=== PATIENT | female | born 1945 | race Caucasian/White ===

== ENCOUNTER 2018-02-20 17:19 | Inpatient (IN) | payer MEDICARE, OTHER ==
[~2018-02-20] VITALS: Ht 160 cm; Wt 102.3 kg
[~2018-02-20 17:19] MED LIST: ALBU8.5H8 INH; HYDR-4353 PO; LEVO137T24 PO
[2018-02-20] MEDS ORDERED: meclizine 12.5mg tablet PO ONE (18:00)
[2018-02-20 18:19] LABS: BASOPHILS % (AUTO) 0.4 % (0-1); EOSINOPHILS % (AUTO) 0.3 % (0-6); HEMATOCRIT 37.9 % (35.0-45.0); HEMOGLOBIN 12.7 g/dl (12.0-16.0); LYMPHOCYTES # (AUTO) 2.1 X10'3 (1.1-4.8); MEAN CORPUSCULAR HGB CONC 33.6 % (33.0-36.5); MEAN CORPUSCULAR VOLUME 92.4 FL (78-98); MONOCYTES # (AUTO) 0.6 X10'3 (0-0.9); MONOCYTES % (AUTO) 5.8 % (2-12); NEUTROPHILS # (AUTO) 8.1 X10'3 (1.8-7.7); NEUTROPHILS % (AUTO) 74.5 % (42-75); PLATELET COUNT 364 X10'3 (140-440); RED CELL DISTRIBUTION WIDTH 14.1 % (11.5-14.5); WHITE BLOOD COUNT 10.9 X10'3 (4.5-11.0)
[2018-02-20 18:33] LABS: PARTIAL THROMBOPLASTIN TIME 25 SECONDS (22-32); PROTHROMBIN TIME 10.4 SECONDS (9.0-12.0)
[2018-02-20 18:35] LABS: ALANINE AMINOTRANSFERASE 35 U/L (12-78); ALKALINE PHOSPHATASE 90 IU/L (46-116); ANION GAP 11 (8-16); ASPARTATE AMINO TRANSFERASE 20 U/L (10-37); BILIRUBIN,TOTAL 0.3 MG/DL (0.1-1.0); BLOOD UREA NITROGEN 19 MG/DL (7-18); BUN/CREATININE RATIO 21.3 (6.6-38.0); CHLORIDE 101 MMOL/L (99-107); CREATININE 0.89 MG/DL (0.40-0.90); GLUCOSE 120 MG/DL (70-104); MAGNESIUM 1.7 MG/DL (1.5-2.4); POTASSIUM 3.5 MMOL/L (3.5-5.1); SODIUM 138 MMOL/L (135-145); TOTAL CARBON DIOXIDE 26.1 MMOL/L (24-32); eGFR 63 ML/MIN
[2018-02-20] MEDS ORDERED: TURM538C (19:31)
[2018-02-20] MEDS ORDERED: CYAN-19 PO (19:31)
[2018-02-20] MEDS ORDERED: metoclopramide 5 mg/ml inj IV PRN (19:35)
[2018-02-20] MEDS ORDERED: bisacodyl 10mg suppository rectal RC PRN (19:35)
[2018-02-20] MEDS ORDERED: diphenhydrAMINE 25mg capsule PO PRN (19:35)
[2018-02-20] MEDS ORDERED: magnesium hydroxide 30ml (MOM) UD suspension PO PRN (19:35)
[2018-02-20] MEDS ORDERED: diphenhydrAMINE 50 mg/ml inj IV PRN (19:35)
[2018-02-20] MEDS ORDERED: mag hydrox/Alum hydrox/simeth 30ml oral suspension PO PRN (19:35)
[2018-02-20] MEDS ORDERED: HYDROmorphone 1 mg/ml syringe IV PRN (19:35)
[2018-02-20] MEDS ORDERED: acetaminophen 325mg tablet PO PRN (19:35)
[2018-02-20] MEDS ORDERED: HYDROcodone/acetaminophen 5mg/325mg tablet PO PRN (19:35)
[2018-02-20] MEDS ORDERED: acetaminophen 650mg rectal suppository RC PRN (19:35)
[2018-02-20] MEDS: normal saline 1000ml 1,000 ML IV SCH (19:35)
[2018-02-20] MEDS ORDERED: ondansetron/PF 4mg/2ml inj IV PRN (19:35)
[2018-02-20] MEDS ORDERED: morphine 2 MG/ML inj. syringe IV PRN (19:35)
[2018-02-20] MEDS ORDERED: normal saline 1000ml 1,000 ML IVB ONE (19:41)
[2018-02-20] MEDS ORDERED: meclizine 12.5mg tablet PO SCH (20:00)
[2018-02-20] MEDS ORDERED: albuterol 2.5 MG/3 ML nebule NEB PRN (20:10)
[2018-02-20 20:14] LABS: D-DIMER 0.83 MG/L FEU (0-0.50)
[2018-02-20 20:21] LABS: CREATINE KINASE 292 U/L (26-192); LIPASE 105 U/L (73-393)
[2018-02-20] MEDS: docusate sod 100mg capsule PO SCH (20:26)
[2018-02-20 20:54] LABS: CLARITY,URINE CLEAR (Clear); COLOR,URINE YELLOW (Yellow); GLUCOSE, URINE NEGATIVE (Neg); KETONES,URINE NEGATIVE (Neg); LEUKOCYTE ESTERASE ,URINE NEGATIVE (Neg); NITRITES, URINE NEGATIVE (Neg); OCCULT BLOOD,URINE TRACE-LYSED (Neg); PH,URINE 6.5 (4.8-8.0); PROTEIN,URINE NEGATIVE (Neg); UROBILINOGEN,URINE 0.2 E.U/dL (0.2-1.0)
[2018-02-20 21:00] LABS: UA COLLECTION TYPE CLN CATCH MIDSTREAM
[2018-02-20] MEDS ORDERED: temazepam 15mg capsule PO PRN (21:00)
[2018-02-20 21:01] LABS: BACTERIA,URINE FEW /HPF (Neg); RBC,URINE 0-2 /HPF (0-2); SQUAMOUS EPITHELIAL CELL,UR FEW /LPF (FEW); WBC,URINE NONE SEEN /HPF (0-4)
[2018-02-20 21:34] LABS: HEMOGLOBIN A1C 6.4 % (4.5-6.2)
[2018-02-20 21:40] LABS: PHOSPHORUS 3.2 MG/DL (2.3-4.5)
[2018-02-20 22:00] VITALS: BP 142/69
[2018-02-20] MEDS ORDERED: pneumococcal 23-VAL P-sac vacc 25 mcg/0.5ml vial IMVAC ONE (23:15)
[2018-02-21] MEDS: meclizine 12.5mg tablet PO SCH ×3 (00:05→15:38)
[2018-02-21] MEDS: heparin, porcine 5000 units/ml vial SQ SCH ×2 (00:07→09:48)
[2018-02-21 05:00] VITALS: BP 145/65
[2018-02-21 06:47] LABS: BASOPHILS % (AUTO) 0.6 % (0-1); EOSINOPHILS # (AUTO) 0.1 X10'3 (0-0.9); EOSINOPHILS % (AUTO) 2.2 % (0-6); HEMOGLOBIN 10.9 g/dl (12.0-16.0); LYMPHOCYTES # (AUTO) 1.9 X10'3 (1.1-4.8); LYMPHOCYTES % (AUTO) 28.4 % (21-51); MEAN CORPUSCULAR HEMOGLOBIN 31.4 PG (27.0-31.0); MEAN CORPUSCULAR VOLUME 92.5 FL (78-98); MEAN PLATELET VOLUME 8.4 FL (7.4-10.4); MONOCYTES # (AUTO) 0.6 X10'3 (0-0.9); MONOCYTES % (AUTO) 8.9 % (2-12); NEUTROPHILS # (AUTO) 4.1 X10'3 (1.8-7.7); NEUTROPHILS % (AUTO) 59.9 % (42-75); PLATELET COUNT 289 X10'3 (140-440); RED BLOOD COUNT 3.45 X10'6 (4.20-5.60); RED CELL DISTRIBUTION WIDTH 14.4 % (11.5-14.5); WHITE BLOOD COUNT 6.8 X10'3 (4.5-11.0)
[2018-02-21] MEDS ORDERED: levoTHYROXINE 112mcg tablet PO SCH (07:00)
[2018-02-21] MEDS ORDERED: levoTHYROXINE 25mcg tablet PO SCH (07:00)
[2018-02-21] MEDS ORDERED: pantoprazole 40mg Tablet.DR PO SCH (07:30)
[2018-02-21] MEDS: normal saline 1000ml 1,000 ML IV SCH (09:47)
[2018-02-21] MEDS: docusate sod 100mg capsule PO SCH (09:49)
[2018-02-21 10:00] VITALS: BP 119/60
[2018-02-21] MEDS ORDERED: gadopentetate dimeglumine 7.5 MMOL/15 ML syringe ONE (12:11)
[2018-02-21] MEDS ORDERED: MECL12.584 PO (14:58)
== END 2018-02-21 16:20 | disposition home or self-care (01) | DRG 149 ==
LOC: ER 17:20 → ED HOLD 19:35 → ORTHO 4S 21:50
PROVIDERS: ADMIT Family Medicine; ATTEND Family Medicine
PROC: BW38YZZ Magnetic Resonance Imaging (MRI) of Head using Other Contrast (ICD-10-PCS; principal; 2018-02-21)
DX: H81.8X9 Other disorders of vestibular function, unspecified ear (principal); J45.909 Unspecified asthma, uncomplicated; R27.0 Ataxia, unspecified; E03.9 Hypothyroidism, unspecified; I10 Essential (primary) hypertension; W18.39XA Other fall on same level, initial encounter; G43.909 Migraine, unspecified, not intractable, without status migrainosus; E86.0 Dehydration; Z28.21 Immunization not carried out because of patient refusal; Z88.6 Allergy status to analgesic agent; Z88.5 Allergy status to narcotic agent; Z91.013 Allergy to seafood; Z79.899 Other long term (current) drug therapy; Z87.891 Personal history of nicotine dependence; Z85.43 Personal history of malignant neoplasm of ovary; Z86.718 Personal history of other venous thrombosis and embolism; Y93.89 Activity, other specified; Y92.89 Other specified places as the place of occurrence of the external cause; Y99.8 Other external cause status
CPT/HCPCS: 36415; 70450; 70544; 70553; 71045; 71250; 74176; 80053; 80061; 81001; 82550; 83036; 83690; 83735; 83880; 84100; 84443; 84484; 85025; 85379; 85610; 85730; 87070; 93306; 93880; 94760; 96360; 97124; 97161; 97530; 99285; A9579; G0378; J1644; J7030; J8597

== ENCOUNTER 2018-06-23 06:28 | Day surgery (SDC) | payer MEDICARE, OTHER ==
[~2018-06-23] VITALS: Ht 160 cm; Wt 88.9 kg
[~2018-06-23 06:28] MED LIST changes: +CYAN-19 PO; -HYDR-4353 PO; +LIDOcaine 1% 30ml preserv. free vial IJ STA; +MECL12.584 PO; +TURM538C
[2018-06-23] MEDS ORDERED: normal saline 1000ml 1,000 ML IV SCH ×2 (06:55→08:58)
[2018-06-23 07:30] VITALS: BP 121/71
[2018-06-23 07:35] LABS: BASOPHILS % (AUTO) 0.1 % (0-1); EOSINOPHILS % (AUTO) 0 % (0-6); HEMATOCRIT 40.8 % (35.0-45.0); LYMPHOCYTES # (AUTO) 0.8 X10'3 (1.1-4.8); LYMPHOCYTES % (AUTO) 8.9 % (21-51); MEAN CORPUSCULAR HEMOGLOBIN 31.1 PG (27.0-31.0); MEAN CORPUSCULAR HGB CONC 34.2 g/dL (33.0-36.5); MEAN CORPUSCULAR VOLUME 90.9 FL (78-98); MEAN PLATELET VOLUME 8.7 FL (7.4-10.4); MONOCYTES # (AUTO) 0.1 X10'3 (0-0.9); MONOCYTES % (AUTO) 1.3 % (2-12); NEUTROPHILS % (AUTO) 89.7 % (42-75); PLATELET COUNT 317 X10'3 (140-440); RED BLOOD COUNT 4.49 X10'6 (4.20-5.60); RED CELL DISTRIBUTION WIDTH 14.3 % (11.5-14.5); WHITE BLOOD COUNT 8.9 X10'3 (4.5-11.0)
[2018-06-23 07:37] LABS: ANION GAP 13 (8-16); BLOOD UREA NITROGEN 18 MG/DL (7-18); BUN/CREATININE RATIO 20.7 (6.6-38.0); CALCIUM 10.2 MG/DL (8.5-10.1); CHLORIDE 104 MMOL/L (99-107); CREATININE 0.87 MG/DL (0.40-0.90); GLUCOSE 162 MG/DL (70-104); POTASSIUM 3.8 MMOL/L (3.5-5.1); SODIUM 141 MMOL/L (135-145); TOTAL CARBON DIOXIDE 23.6 MMOL/L (24-32); eGFR 64 ML/MIN
[2018-06-23 07:40] LABS: PROTHROMBIN TIME 10.1 SECONDS (9.0-12.0)
[2018-06-23] MEDS ORDERED: HYDR-4353 PO (07:56)
[2018-06-23] MEDS ORDERED: LIDOcaine 1%/PF 5ML 10 MG/ML VIAL ONE (08:56)
[2018-06-23] MEDS ORDERED: iohexol 300 MG/1 ML 50ml polymer ONE (08:58)
[2018-06-23] MEDS ORDERED: LIDOcaine 1%/PF 5ML 10 MG/ML VIAL SQ ONE (09:15)
[2018-06-23] MEDS ORDERED: fentaNYL/PF 50MCG/1 ML 2ML syringe IV PRN (09:15)
[2018-06-23] MEDS ORDERED: LIDOcaine 2% 5ml jelly ONE (09:20)
[2018-06-23] MEDS ORDERED: tPA-cathflo 2 MG/2 ml IV flush ONE (10:00)
[2018-06-23 10:10] VITALS: BP 126/59
[2018-06-23 10:20] VITALS: BP 126/69
[2018-06-23 10:30] VITALS: BP 126/72
[2018-06-23 10:45] VITALS: BP 135/64
[2018-06-23] MEDS ORDERED: pneumococcal 23-VAL P-sac vacc 25 mcg/0.5ml vial IMVAC ONE (11:00)
== END 2018-06-23 11:10 | disposition home or self-care (01) ==
LOC: SSTAY O 06:28
PROVIDERS: ATTEND Radiology Diagnostic Radiology
DX: C48.1 Malignant neoplasm of specified parts of peritoneum (principal); D48.1 Neoplasm of uncertain behavior of connective and other soft tissue; E03.9 Hypothyroidism, unspecified; J45.909 Unspecified asthma, uncomplicated; G62.9 Polyneuropathy, unspecified; Z88.6 Allergy status to analgesic agent; Z91.013 Allergy to seafood; Z91.09 Other allergy status, other than to drugs and biological substances; Z48.03 Encounter for change or removal of drains; Z87.891 Personal history of nicotine dependence; Z85.43 Personal history of malignant neoplasm of ovary; Z90.79 Acquired absence of other genital organ(s); Z90.710 Acquired absence of both cervix and uterus
CPT/HCPCS: 10005; 36415; 80048; 85025; 85610; J2001; J2997; J7030; Q9967; 20206; 36593; 76942

== ENCOUNTER 2019-06-23 15:14 | Outpatient (CLI) | payer MEDICARE, OTHER ==
[~2019-06-23 15:14] MED LIST changes: -CYAN-19 PO; +HYDR-4353 PO; -LIDOcaine 1% 30ml preserv. free vial IJ STA; +MECL-183 PO; -MECL12.584 PO; -TURM538C
== END 2019-06-23 23:59 | disposition home or self-care (01) ==
LOC: CARD DIAG 15:14
PROVIDERS: ATTEND Internal Medicine
DX: I08.3 Combined rheumatic disorders of mitral, aortic and tricuspid valves (principal)
CPT/HCPCS: 93306

== ENCOUNTER 2020-04-02 12:54 | Emergency (ER) | payer MEDICARE, OTHER ==
[~2020-04-02] VITALS: Ht 160 cm; Wt 90.0 kg
[~2020-04-02 12:54] MED LIST changes: -MECL-183 PO; +MECL-226 PO
== END 2020-04-02 15:48 | disposition home or self-care (01) ==
LOC: ER 12:54
DX: R50.9 Fever, unspecified (principal); Z20.828 Contact with and (suspected) exposure to other viral communicable diseases; G43.909 Migraine, unspecified, not intractable, without status migrainosus; J45.909 Unspecified asthma, uncomplicated; Z85.43 Personal history of malignant neoplasm of ovary; Z98.890 Other specified postprocedural states; Z88.8 Allergy status to other drugs, medicaments and biological substances; Z88.5 Allergy status to narcotic agent; Z88.6 Allergy status to analgesic agent; Z91.013 Allergy to seafood; Z79.899 Other long term (current) drug therapy
CPT/HCPCS: 36415; 87635; 99283

== ENCOUNTER 2020-05-24 05:40 | Day surgery (SDC) | payer MEDICARE, OTHER ==
[2020-05-17 14:16] LABS: BASOPHILS % (AUTO) 0.3 % (0-1); EOSINOPHILS % (AUTO) 0 % (0-6); LYMPHOCYTES # (AUTO) 1.8 X10'3 (1.1-4.8); LYMPHOCYTES % (AUTO) 25.1 % (21-51); MEAN CORPUSCULAR HEMOGLOBIN 34.4 PG (27.0-31.0); MEAN CORPUSCULAR HGB CONC 33.7 g/dL (33.0-36.5); MEAN CORPUSCULAR VOLUME 102.2 FL (78-98); MEAN PLATELET VOLUME 7.6 FL (7.4-10.4); MONOCYTES # (AUTO) 0.7 X10'3 (0-0.9); NEUTROPHILS # (AUTO) 4.7 X10'3 (1.8-7.7); NEUTROPHILS % (AUTO) 64.6 % (42-75); PRE OP HEMATOCRIT 33.8 % (35.0-45.0); PRE OP HEMOGLOBIN 11.4 g/dL (12.0-16.0); PRE OP PLATELET COUNT 295 X10'3 (140-440); RED BLOOD COUNT 3.31 X10'6 (4.20-5.60); RED CELL DISTRIBUTION WIDTH 15.3 % (11.5-14.5)
[2020-05-17 14:27] LABS: ALBUMIN 3.5 G/DL (3.4-5.0); ALBUMIN/GLOBULIN RATIO 0.9 (1.1-1.5); ALKALINE PHOSPHATASE 192 IU/L (46-116); BLOOD UREA NITROGEN 21 MG/DL (7-18); CALCIUM 9.3 MG/DL (8.5-10.1); CHLORIDE 106 MMOL/L (99-107); PRE OP ALT 55 U/L (30-65); PRE OP ANION GAP 7 (8-16); PRE OP AST 32 U/L (10-37); PRE OP BILIRUB, TOTAL 0.3 MG/DL (0.0-1.0); PRE OP GLUCOSE 104 MG/DL (70-104); PRE OP POTASSIUM 4.2 MMOL/L (3.4-5.1); PRE OP SODIUM 142 MMOL/L (135-145); TOTAL CARBON DIOXIDE 29.4 MMOL/L (24-32); TOTAL PROTEIN 7.4 G/DL (6.4-8.2); eGFR 54 ML/MIN
[~2020-05-24] VITALS: Ht 160 cm; Wt 81.6 kg
[2020-05-24] VITALS (15 sets, daily range): BP systolic 111–135; BP diastolic 49–67
[~2020-05-24 05:40] MED LIST changes: +ACET-1025 PO; -ALBU8.5H8 INH; +BIOT5TAB PO; +CHOL10006 PO; +GABA300C PO; -HYDR-4353 PO; -LEVO137T24 PO; +MARIJUANA INH; -MECL-226 PO; +MULT-1085 PO; +[UNRECOGNIZED DRUG - OTHER] PO; +ceFAZolin 2gm in dextrose, iso 50 ML IV ONE; +famotidine 20mg tablet PO ONE; +ringers solution, lacted 1,000 ML IV SCH
[2020-05-24] MEDS ORDERED: LIDOcaine 1% (10mg/ml) 2ml vial ONE (05:59)
[2020-05-24] MEDS ORDERED: bacitracin 15gm ointment TP ONE (06:50)
[2020-05-24] MEDS ORDERED: cloNIDine hcl/PF 100mcg/ml inj ONE (06:52)
[2020-05-24] MEDS ORDERED: MIDAZolam 5mg/5ml vial ONE (06:53)
[2020-05-24] MEDS ORDERED: fentaNYL/PF 50MCG/1 ML 2ML syringe ONE (06:54)
[2020-05-24] MEDS ORDERED: propofol inj 20 ML IV ONE (06:54)
[2020-05-24] MEDS ORDERED: sevoflurane 250ml liquid IH ONE (06:56)
[2020-05-24] MEDS ORDERED: ROPIVAcaine 0.5% (5mg/ml) 30ml vial ONE (06:56)
[2020-05-24 07:07] LABS: CLARITY,URINE CLEAR (Clear); COLOR,URINE STRAW (Yellow); GLUCOSE, URINE NEGATIVE (Neg); KETONES,URINE NEGATIVE (Neg); LEUKOCYTE ESTERASE ,URINE NEGATIVE (Neg); NITRITES, URINE NEGATIVE (Neg); OCCULT BLOOD,URINE NEGATIVE (Neg); PH,URINE 5.5 (4.8-8.0); PROTEIN,URINE NEGATIVE (Neg); UROBILINOGEN,URINE 0.2 E.U/dL (0.2-1.0)
[2020-05-24 07:08] LABS: UA COLLECTION TYPE CLN CATCH MIDSTREAM
[2020-05-24] MEDS ORDERED: ringers solution, lacted 1,000 ML IV SCH (08:25)
[2020-05-24] MEDS ORDERED: morphine 4 MG/ML inj SYRINge IV PRN (08:25)
[2020-05-24] MEDS ORDERED: ROPIVAcaine 0.2%/PF PUMP/bolus 550 ML POPLITEAL SCH (08:25)
[2020-05-24] MEDS ORDERED: meperidine/PF 25mg/ml syringe IV PRN ×3 (08:25)
[2020-05-24] MEDS ORDERED: ROPIVAcaine 0.2% (10 MG/5 ML) BOLUS INJECTION POPLITEAL PRN (08:25)
[2020-05-24] MEDS ORDERED: morphine 2 MG/ML inj. syringe IV PRN (08:25)
[2020-05-24] MEDS ORDERED: proCHLORperazine 10 MG/2 ml inj IV PRN (08:25)
[2020-05-24] MEDS ORDERED: ondansetron/PF 4mg/2ml inj IV PRN (08:25)
--- NOTE | 2020-05-24 10:50 | NUR ---
ADMITTED TO PACU FROM OR ACCOMPANIED BY ANESTHESIA. INTIAL PHYSICAL ASSESSMENT DONE AND RECORDED. REPORT RECEIVED FROM ANESTHESIA.
--- NOTE | 2020-05-24 13:30 | NUR ---
DISCHARGE CRITERIA MET, DISCHARGE INSTRUCTIONS GIVEN, DEMONSTRATES VERBAL UNDERSTANDING. DISCHARGED HOME IN GOOD CONDITION.
== END 2020-05-24 13:30 | disposition home or self-care (01) ==
LOC: PAS 05:40
PROVIDERS: ATTEND Podiatrist Foot & Ankle Surgery
DX: M20.12 Hallux valgus (acquired), left foot (principal); M24.575 Contracture, left foot; M19.072 Primary osteoarthritis, left ankle and foot; M79.672 Pain in left foot; G89.18 Other acute postprocedural pain; M21.6X2 Other acquired deformities of left foot; M19.071 Primary osteoarthritis, right ankle and foot; J45.909 Unspecified asthma, uncomplicated; E03.9 Hypothyroidism, unspecified; M77.42 Metatarsalgia, left foot; G62.9 Polyneuropathy, unspecified; Z88.8 Allergy status to other drugs, medicaments and biological substances; Z87.891 Personal history of nicotine dependence; Z88.5 Allergy status to narcotic agent; Z98.890 Other specified postprocedural states; Z85.43 Personal history of malignant neoplasm of ovary; Z90.710 Acquired absence of both cervix and uterus; Z92.21 Personal history of antineoplastic chemotherapy; Z86.16 Personal history of COVID-19; Z91.013 Allergy to seafood
CPT/HCPCS: 20900; 27687; 28304; 28715; 36415; 64446; 64447; 73630; 76000; 76942; 80053; 81003; 82948; 85025; 93005; A6223; C1713; C1762; J0735; J2001; J2250; J2704; J2795; J3010; J7120; 76937; A4618; A6253; A6449; A7000

== ENCOUNTER 2020-07-13 15:40 | Emergency (ER) | payer MEDICARE, OTHER ==
[~2020-07-13] VITALS: Ht 160 cm; Wt 81.8 kg
[~2020-07-13 15:40] MED LIST changes: -ceFAZolin 2gm in dextrose, iso 50 ML IV ONE; -famotidine 20mg tablet PO ONE; -ringers solution, lacted 1,000 ML IV SCH
--- NOTE | 2020-07-13 18:14 | NUR ---
pt resting on gurney, no vomiting noted since arrival to er. awaiting
[2020-07-13] MEDS ORDERED: normal saline 1000ML IV soln IVB ONE (18:40)
[2020-07-13] MEDS ORDERED: ondansetron/PF 4mg/2ml inj IV ONE (18:40)
[2020-07-13 19:14] LABS: BASOPHILS % (AUTO) 0.1 % (0-1); EOSINOPHILS % (AUTO) 0 % (0-6); HEMATOCRIT 30.8 % (35.0-45.0); HEMOGLOBIN 10.5 g/dl (12.0-16.0); LYMPHOCYTES # (AUTO) 0.7 X10'3 (1.1-4.8); LYMPHOCYTES % (AUTO) 8.5 % (21-51); MEAN CORPUSCULAR HEMOGLOBIN 33.8 PG (27.0-31.0); MEAN CORPUSCULAR HGB CONC 34.1 g/dL (33.0-36.5); MEAN CORPUSCULAR VOLUME 99.1 FL (78-98); MEAN PLATELET VOLUME 7.9 FL (7.4-10.4); MONOCYTES # (AUTO) 0.5 X10'3 (0-0.9); MONOCYTES % (AUTO) 6.3 % (2-12); NEUTROPHILS # (AUTO) 6.6 X10'3 (1.8-7.7); NEUTROPHILS % (AUTO) 85.1 % (42-75); PLATELET COUNT 225 X10'3 (140-440); RED BLOOD COUNT 3.11 X10'6 (4.20-5.60); RED CELL DISTRIBUTION WIDTH 15.8 % (11.5-14.5); WHITE BLOOD COUNT 7.8 X10'3 (4.5-11.0)
[2020-07-13] MEDS ORDERED: iohexol 300mg/ml 100ml inj. ONE (19:29)
[2020-07-13 19:42] LABS: CLARITY,URINE CLEAR (Clear); COLOR,URINE YELLOW (Yellow); GLUCOSE, URINE NEGATIVE (Neg); KETONES,URINE NEGATIVE (Neg); LEUKOCYTE ESTERASE ,URINE NEGATIVE (Neg); NITRITES, URINE NEGATIVE (Neg); OCCULT BLOOD,URINE NEGATIVE (Neg); PROTEIN,URINE NEGATIVE (Neg); UROBILINOGEN,URINE 0.2 E.U/dL (0.2-1.0)
[2020-07-13 19:43] LABS: ALANINE AMINOTRANSFERASE 34 U/L (12-78); ALBUMIN 3.8 G/DL (3.4-5.0); ALKALINE PHOSPHATASE 136 IU/L (46-116); ANION GAP 10 (8-16); ASPARTATE AMINO TRANSFERASE 27 U/L (10-37); BILIRUBIN,TOTAL 0.3 MG/DL (0.1-1.0); BLOOD UREA NITROGEN 24 MG/DL (7-18); BUN/CREATININE RATIO 26.7 (6.6-38.0); CALCIUM 9.4 MG/DL (8.5-10.1); CHLORIDE 105 MMOL/L (99-107); GLUCOSE 119 MG/DL (70-104); MAGNESIUM 1.7 MG/DL (1.5-2.4); POTASSIUM 4.5 MMOL/L (3.5-5.1); SODIUM 140 MMOL/L (135-145); TOTAL CARBON DIOXIDE 25.2 MMOL/L (24-32); TOTAL PROTEIN 7.5 G/DL (6.4-8.2); eGFR 61 ML/MIN
[2020-07-13 19:44] LABS: UA COLLECTION TYPE CLN CATCH MIDSTREAM
[2020-07-13 20:15] VITALS: BP 146/73
[2020-07-13] MEDS ORDERED: ONDA4TAB6 PO (20:31)
== END 2020-07-13 21:27 | disposition home or self-care (01) ==
LOC: ER 15:41
DX: C56.9 Malignant neoplasm of unspecified ovary (principal); K29.00 Acute gastritis without bleeding; K44.9 Diaphragmatic hernia without obstruction or gangrene; K59.00 Constipation, unspecified; R11.10 Vomiting, unspecified; R42 Dizziness and giddiness; G43.909 Migraine, unspecified, not intractable, without status migrainosus; J45.909 Unspecified asthma, uncomplicated; Z98.890 Other specified postprocedural states; Z91.013 Allergy to seafood; Z88.6 Allergy status to analgesic agent; Z79.899 Other long term (current) drug therapy
CPT/HCPCS: 36415; 71045; 74177; 80053; 81003; 83735; 83880; 84484; 85025; 93005; 96374; 99285; J2405; J7030; Q9967

== ENCOUNTER 2022-11-30 12:44 | Outpatient (CLI) | payer MEDICARE, OTHER ==
[~2022-11-30 12:44] MED LIST changes: -ACET-1025 PO; -BIOT5TAB PO; -CHOL10006 PO; -GABA300C PO; +LACT1CAP26 PO; +LEVO150T8 PO; +LEVO750T68 PO; -MARIJUANA INH; -MULT-1085 PO; +[UNRECOGNIZED DRUG - OTHER] PO; +[UNRECOGNIZED DRUG - OTHER] PO; -[UNRECOGNIZED DRUG - OTHER] PO
[2022-11-30] MEDS ORDERED: FURO-150 PO (14:24)
[2022-11-30] MEDS ORDERED: APIX5TAB3 PO (14:24)
[2022-11-30] MEDS ORDERED: POTA-207 PO (14:24)
== END 2022-11-30 23:59 | disposition home or self-care (01) ==
LOC: VAS 12:44
PROVIDERS: ATTEND Internal Medicine Cardiovascular Disease
DX: I82.461 Acute embolism and thrombosis of right calf muscular vein (principal); R22.43 Localized swelling, mass and lump, lower limb, bilateral; M79.662 Pain in left lower leg; M79.661 Pain in right lower leg
CPT/HCPCS: 93970

== ENCOUNTER 2022-11-30 13:54 | Emergency (ER) | payer MEDICARE, OTHER ==
[~2022-11-30] VITALS: Ht 160 cm; Wt 83.6 kg
[2022-11-30 13:56] VITALS: BP 158/62; PULSE 72; RESP 16; TEMP 98; O2SAT 100
[2022-11-30] MEDS ORDERED: APIX5TAB3 PO (14:24)
[2022-11-30] MEDS ORDERED: FURO-150 PO (14:24)
[2022-11-30] MEDS ORDERED: POTA-207 PO (14:24)
== END 2022-11-30 15:23 | disposition home or self-care (01) ==
LOC: ER 13:55
DX: I82.491 Acute embolism and thrombosis of other specified deep vein of right lower extremity (principal)
CPT/HCPCS: 99283